=== PATIENT | male | born 1960 | race Caucasian/White ===

== ENCOUNTER 2025-02-20 21:00 | Emergency (ER) | payer BC, SELFPAY ==
--- OUTSIDE RECORDS SUMMARY | 2025-02-20 21:02 | XMS_ITS | Clinical Summary ---
Author Organization [facility] Address [address] [place] [id number] Care Team Providers Care Editing Clerk Name Role Phone Oscar Tello MD Primary Care Provider [phone]- [phone] Allergies No known active allergies Medications multivitamin (MVI) tablet Take 1 Tablet by mouth once daily. Active docusate 100 mg capsuleIndicatio ns:Lower urinary tract symptoms due to benign prostatic hyperplasia Take 1 Capsule (100 mg) by mouth 2 times daily if needed for Constipation . 20 Capsule 10/20/2024 10:16 AM CDT 10/20/2024 Active Active Problems Problem Noted Date Diagnosed Date Benign neoplasm of left kidney 05/10/2023 High prostate specific antigen (PSA) 05/10/2023 Lower urinary tract symptoms due to benign prostatic hyperplasia 05/10/2023 Renal mass 09/02/2021 Sensorineural hearing loss, bilateral 08/19/2018 Erectile dysfunction 12/26/2016 Benign non-nodular prostatic hyperplasia with lower urinary tract symptoms 12/26/2016 Resolved Problems Problem Noted Date Diagnosed Date Resolved Date Chest pain 09/02/2021 10/13/2024 CRP elevated 09/02/2021 10/13/2024 Encounter for screening colonoscopy 10/13/2024 Family History Medical History Relation Name Comments Cancer-prostate Father Dementia Father Cancer-breast Mother Dementia Mother Heart attack No Family History Relation Name Status Comments Father Mother Alive Social History Tobacco Use Types Packs/Day Years Used Date Smoking Tobacco: Never Smokeless Tobacco: Never Tobacco Cessation:Counseling Given: Yes Alcohol Use Standard Drinks/Week Comments Not Currently 0 (1 standard drink = 0.6 oz pur e alcohol) PHQ-2 Answer Date Recorded PHQ-2 TOTAL SCORE 0 10/13/2024 Social Connections Answer Date Recorded Do you often feel lonely or isolated from those around you? 0 06/28/2024 Financial Resource Strain Answer Date R ecorded Difficulty of Paying Living Expenses 3 06/28/2024 Difficulty of Paying Living Expenses Not on file 06/28/2024 Food Insecurity Answer Date Recorded Do you worry your food will run out before you are able to buy more? 1 06/28/2024 Transportation Needs Answer Date Record ed Does lack of transportation keep you from medica l appointments? 1 06/28/2024 Does lack of transportation keep you from work, meetings or getting things that you need? 1 06/28/2024 Housing Stability Answer Date Recorded What is your housing situation today? 1 06/28/2024 Interpersonal Safety Answer Date Record ed Are you being hit, kicked, p ushed or yelled at (see row info)? No 10/19/2024 Interpersonal Safety Abuse 12 - 18 Not on file 10/19/2024 Interpersonal Safety Ambulatory Vulnerability No t on file 10/19/2024 Utilities Answer Date Recorded Do you have trouble paying f or utilities (for example, heat, electricity, water, phone)? 1 06/28/2024 Sex and Gender Information Value Date Recorded Sex Assigned at Not on file Legal Sex Male 5:26 AM [employer]NAGER HOME [employer] Gender Identity Not on file Sexual Orientation Not on file Obstetrics History Last Filed Vital Signs Vital Sign Reading Time Taken Comments Blood Pressure 133/69 10/20/2024 7:48 AM CDT Pulse 84 10/20/2024 7:48 AM CDT Temperature 37 C (98.6 F) 10/20/2024 7:48 AM CDT Respiratory Rate 20 10/20/2024 7:48 AM CDT Oxygen Saturation 95% 10/20/2024 7:48 AM CDT Inhaled Oxygen Concentration - - Weight 79.8 kg (176 lb) 10/19/2024 6:37 AM CDT Height 180.3 cm (5' 11) 10/19/2024 6:37 AM CDT Body Mass Index 24.55 10/19/2024 6:37 AM CDT Plan of Treatment Health Maintenance Due Date Last Done Comments Pneumococcal series for age 50+ (1 of 1 - PCV) 2010 Zoster (shingles) series for age 50+ (1 of 2) 2010 RSV vaccine for adults or (1 - Risk 60-74 years 1-dose series) 2020 Tetanus booster 01/30/2021 01/30/2011 (Declined) COVID-19 vaccine series (1 - season) 2024 Influenza Vaccine (#1) 2025 BMI (ht and wt on same day) for age 18+ 06/29/2025 06/29/2024, 06/04/2022, 05/14/2022, Additional history exists Depression screening for age 12+ 10/13/2025 10/13/2024, 07/10/2024, 06/02/2021, Additional history exists Lipids for age 45-75 06/29/2029 06/29/2024, 05/01/2021, 06/01/2020, Additional history exists Colonoscopy through age 75 07/02/2032 07/02/2022 Hepatitis C screening for age 18-79 Completed 05/01/2021 HIV for age 15-65 Completed 06/29/2024 Hepatitis B series for 19+ Aged Out N o longer eligible based on patient's age to complete this topic Procedures Procedure Name Priority Date/Time Associated Diagnosis Comments ANTI HIV 1/2 Routine 06/29/2024 11:15 AM [employer]GER [employer] Screening for HIV (human immunodeficiency virus) LIPID PANEL Routine 06/29/2024 11:15 AM MANAGER HOME [employer] Screening, lipid COLONOSCOPY 07/02/2022 11:42 AM MANAGER HOME [employer]EMENT ANTI HCV Add On 05/01/2021 8:00 AM CDT Need for hepatitis C screening test from Last 3 Months or Most Recently Relevant to Health Maintenance Results * ANTI HIV 1/2 [95186.0] (06/29/2024 11:15 AM MANAGER HOME [employer]) HIV AG/AB, 4TH GEN NON-REACT MICAHEL NON-REACT MICHAEL [facility] Comment: HIV-1 antigen and HIV-1/HIV-2 antibodies were not detected. There is no laboratory evidence of HIV infection. PLEASE NOTE: This information has been disclosed to you from records whose confidentiality may be protected by state law. If your state requires such protection, then the state law prohibits you from making any further disclosure of the information without the specific written consent of the person to whom it pertains, or as otherwise permitted by law. A general authorization for the release of medical or other information is NOT sufficient for this purpose. For additional information please refer to http://education.Re[employer]/faq/IGU581 (This link is being provided for informational/ educational purposes only.) The performance of this assay has not been clinically validated in patients less than 2 years old. Blood BLOOD SPECIMEN / Unknown 06/29/2024 11:15 AM [employer]NAGER HOME [employer]EMENT 06/29/2024 11:16 AM MANAGER HOME [employer]OVEMENT Oscar Tello MD SEND OUTS Final Resu lt [facility] [address] [place] [address], [facility] [address] * (ABNORMAL) LIPID PANEL (06/29/2024 11:15 AM MANAGER HOME [employer]OVEMENT) CHOLESTEROL, TOTAL 218(H) <200 mg/dL [facility] HDL CHOLESTEROL 73 > OR = 40 mg/dL [facility] TRIGLYCERIDES 92 <150 mg/dL [facility] LDL-CHOLESTEROL 125(H) mg/dL (calc) [facility] Comment: Reference range: <100 Desirable range <100 mg/dL for primary prevention; <70 mg/dL for patients with CHD or diabetic patients with > or = 2 CHD risk factors. LDL-C is now calculated using the Gabriel calculation, which is a validated novel method providing better accuracy than the Friedewald equation in the estimation of LDL-C. Storm EWING et al. ANTONIO. 2013;310(19): 0415-7949 (http://education.ClickShift.Andela/faq/CQT656) CHOL/HDLC RATIO 3.0 <5.0 (calc) [facility] NON HDL CHOLESTEROL 145(H) <130 mg/dL (calc) [facility] Comment: For patients with diabetes plus 1 major ASCVD risk factor, treating to a non-HDL-C goal of <100 mg/dL (LDL-C of <70 mg/dL) is considered a therapeutic option. Blood BLOOD SPECIMEN / Unknown 06/29/2024 11:15 AM MANAGER HOME [employer]OVEMENT 06/29/2024 11:16 AM MANAGER HOME [employer]OVEMENT us Oscar Tello MD CHEMISTRY Final Resu lt [employer] [facility] [address] [place] [address], [facility] [address] [place] [address] * COLONOSCOPY (07/02/2022 11:42 AM MANAGER HOME [employer]OVEMENT) 07/02/2022 11:4 2 AM MANAGER HOME [employer]OVEMENT Narrative Transcriptions Diogo Velazquez DO - 07/02/2022 12:26 PM CST Patient Name: Sundeep Garcia Procedure Date: 07/02/2022 Gender: Male Date of : 1960 Admit Type: Ambulatory Procedure: Colonoscopy Proceduralist: Diogo Velazquez MD [facility] Indications/Pre-Op Diagnosis: Screening for colorectal malignant neoplasm, This is the patient's first colonoscopy Medications: Propofol per Anesthesia Procedure Description: The patient had risks, benefits and alternatives explained to andgave informed consent. The patient had a stable cardiopulmonary status and judged an adequate candidate for conscious sedation. The endoscope [id number] was passed through the anus and advanced to the cecum, identified by appendiceal orifice and ileocecal valve. The colonoscopy was performed without difficulty. The patient toleratedthe procedure well. The quality of the bowel preparation was good. The ileocecal valve, appendiceal orifice, and rectum were photographed. Complications: No immediate complications. Estimated Blood Loss & Specimen: Estimated blood loss: none. Specimen collected - None Findings: Non-bleeding internal hemorrhoids were found during retroflexion. The hemorrhoids were Grade II (internal hemorrhoids that prolapse butreduce spontaneously). The exam was otherwise without abnormality. Impressions/Post-Op Diagnosis: - Non-bleeding internal hemorrhoids. - The examination was otherwise normal. - No specimens collected. Recommendation: - Discharge patient to home. - Patient has a contact number available for emergencies. The signsand symptoms of potential delayed complications were discussed with the patient. Return to normal activities tomorrow. Written discharge instructions were provided to the patient. - High fiber diet. - Continue present medications. - Repeat colonoscopy in 10 years for screening purposes. Moderate Sedation: Moderate (conscious) sedation was personally administered by an anesthesia professional. The following parameters were monitored:oxygen saturation, heart rate, blood pressure, and response to care. Diogo Velazquez MD 07/02/2022 12:26:09 PM This report has been signed electronically. Note Initiated On: 07/02/2022 11:42 AM us Diogo Velazquez DO PROCEDURE ORD Fi nal Result * ANTI HCV (05/01/2021 8:00 AM CDT) HEPATITIS C ANTIBODY Non-React michael Non-React michael 05/01/2021 3:18 PM CDT [facility] Comment:Antibodies to HCV no t detected; does not exclude the possibility of exposure to HCV. Blood BLOOD SPECIMEN / Unknown Venipuncture / Unknown 05/01/2021 8:00 AM CDT 05/01/2021 8:00 AM CDT us Oscar Tello MD SEND OUTS Final Resu lt [facility] [address] [place] [address], [place] from Last 3 Months or Most Recently Relevant to Health Maintenance Insurance [facility] Advance Directives * Full Code (Latest Code Status on File) Date Activated Date Inactivated Comments 10/19/2024 6:06 AM 10/20/2024 2:36 PM Question Answer Comments Code Status Discussion: Not Discussed * Full Code Date Activated Date Inactivated Comments 09/04/2023 10:22 AM 09/04/2023 6:05 PM Question Answer Comments Code Status Discussion: Unable to Assess Preferences, Provider to review later * Full Code Date Activated Date Inactivated Comments 07/02/2022 10:45 AM 07/02/2022 3:27 PM Question Answer Comments Code Status Discussion: Discussed * Full Code Date Activated Date Inactivated Comments 05/29/2022 10:11 AM 05/30/2022 9:56 PM Question Answer Comments Code Status Discussion: Unable to Assess Preferences, Provider to review later * Full Code Date Activated Date Inactivated Comments 09/02/2021 3:00 PM 09/03/2021 6:58 PM Question Answer Comments Code Status Discussion: Reviewed Preferences Care Teams Editing Clerk Relationship Specialty Start Date End Date Oscar Tello MD [address] [place] [address] PCP - General Family Practice 07/17/21
--- OUTSIDE RECORDS SUMMARY | 2025-02-20 21:03 | XMS_ITS | Continuity of Care Document ---
Author Organization [facility], [facility] Address [address] [place] [address] Care Team Providers Care Rn Labor Delivery Name Role Phone [facility] Primary Care Provider Assessment No assessment recorded. Plan of Treatment Reminders Order Date Submit Date Provider Last Modified By Organization Details Last Modified Time Details Appointments None record ed. Lab None record ed. Referral None record ed. Procedures None record ed. Surgeries None record ed. Imaging None record ed. Medication Orders None record ed. Patient TargetsNo targets recorded. Patient Instructions Encounter Date Encounter Id Patient Instructions Last Modified By Organization Details Last Modified Time 01/26/2025 [id number] Timothy's recovery from Aqua is on track for a nice response, and I do expect his spraying to improve. He'll obtain his MRI kidney later this year, and we'll assess for growth change in the right kidney mass. His prostate has been adequately sampled over the past 15 months, we'll check a PSA next year. Not available 01/26/2025 10:57:40 Reason for Referral None Reported. Problems Name Problem SNOMED Code Status Onset Date Resolution Date Notes Provider Name and Address Organization Details Recorded Time Benign neoplasm of left kidney 3037448533462 04 Active 2022 Tejas shelton MD [address] [place] [address],[address], [phone], [facility] 3 16:19:34 Neoplasm of uncertain behavior of right kidney 5429166708907 01 Active 2022 Tejas shelton MD [address] [place] [address],[address] [place] [address], [phone], [facility] 5 10:55:01 Lower urinary tract symptoms due to benign prostatic hypertrophy 6672661816759 1 Active 2022 Tejas shelton MD [address] [place] [address],[address], [place], [address], [facility] 3 16:19:45 Prostate specific antigen above reference range 632872681 Active 2022 Tejas shelton MD [address] [place] [address],[address], [place], [address], [facility] 5 10:57:54 Primary erectile dysfunction 276046520 Active 2023 Tejas shelton MD [address] [place] [address],[address], [place], [address], [facility] 4 16:17:08 Claustropho jayme 84031529 Active 2023 Tejas shelton MD [address] [place] [address],[address], [place], [address], [facility] 4 12:07:31 Urge incontinenc e of urine 09475498 Active 2024 Tejas shelton MD [address] [place] [address],[address], [place], [address], [facility] 5 10:25:54 Problem Notes None recorded. Procedures Surgical History Date Name Laterality Status Provider Name and Address Organization Details Recorded Time 01/27/20 25 COMPLEX VISIT completed Tejas Almaraz MD [address] [place] [address],[address], [place], [address], [facility] 01/26/2025 10:58:02 01/27/20 25 Bladder Scan completed Letty Chavez [facility] 01/26/2025 09:26:40 11/18/19 25 Bladder Scan completed Lidia Parmar [facility] 11/17/2024 09:46:55 07/16/20 24 Bladder Scan completed Neal Palm [facility] 07/16/2024 17:09:47 07/16/20 24 [place] [facility] completed Neal Palm [facility] 07/16/2024 17:10:54 07/09/20 24 CystoscopyMale completed Tejas Almaraz MD [address] [place] [address],[address], [place], [address], [facility] 07/09/2024 10:13:21 05/07/20 24 COMPLEX VISIT completed Tejas Almaraz MD [address] [place] [address],[address], [place], [address], [facility] 05/07/2024 17:11:06 09/20/19 24 COMPLEX VISIT completed Tejas Almaraz MD [address] [place] [address],[address], [place], [address], [facility] 09/20/2023 16:20:42 07/03/20 23 Rocephin/Ceftriax one completed Carol Hsu [facility] 07/03/2023 08:23:17 05/10/20 23 Blood Draw/BENCH PRESS OPERATOR/PSA RESULTS completed Tanya Willard [facility] 05/10/2023 16:14:08 05/04/20 22 Bladder Scan completed Lucía Ha [facility] 05/04/2022 12:59:59 07/29/19 22 Colonoscopy completed Carolee Perkins [facility] 05/07/2024 15:19:15 01/21/20 21 Fill and Pull/Voiding Trial/TOV completed Zoila Simpson [facility] 01/20/2021 14:49:20 01/17/20 21 Rezum completed David Castaneda MD [address] [place] [address],[address], [place], [address], [facility] 01/16/2021 15:30:48 Imaging Results None recorded. Procedure Notes None recorded. Medical Equipment None Reported. Allergies No known drug allergies Medications Name Sig Start Date Stop Date Status Note LastModified by Organization Details LastModified Time oxybutynin chloride ER 10 mg tablet,exte nded release 24 hr TAKE 1 TABLET BY MOUTH EVERY DAY 01/26 completed Not Available Not Available Not Available ibuprofen 800 mg tablet 05/04 completed Not Available Not Available Not Available penicillin V potassium 500 mg tablet 05/07 completed Not Available Not Available Not Available sulfamethox azole 800 mg-trimetho prim 160 mg tablet Take 1 tablet every 12 hours by oral route for 5 days. 05/04 completed Not Available Not Available Not Available ceftriaxone 1 gram solution for injection Take 1 g by injection route. 05/07 completed Not Available Not Available Not Available Fleet Enema 19 gram-7 gram/118 mL Insert by rectal route the morning of the Biopsy. 05/07 completed Not Available Not Available Not Available tamsulosin 0.4 mg capsule TAKE 1 CAPSULE BY MOUTH EVERY DAY 07/09 completed Not Available Not Available Not Available benzonatate 100 mg capsule TAKE 1 CAPSULE (100 MG) BY MOUTH 3 TIMES DAILY IF NEEDED FOR COUGH. 09/14 completed Not Available Not Available Not Available lorazepam 1 mg tablet TAKE 1 TABLET BY MOUTH 30 MINUTES BEFORE TEST. MAY REPEAT ONCE 05/04 completed Not Available Not Available Not Available diazepam 10 mg tablet TAKE 1 TABLET AN HOUR PRIOR TO YOUR MRI. DO NOT DRIVE YOURSELF TO THIS MRI IF YOU DO. 05/07 completed Not Available Not Available Not Available ibuprofen 600 mg tablet TAKE 1 TABLET (600 MG) BY MOUTH EVERY 6 HOURS IF NEEDED FOR PAIN. MAXIMUM OF 3200 MG IN 24 HOURS. 05/04 completed Not Available Not Available Not Available levofloxaci n 500 mg tablet TAKE 1 TABLET DAILY FOR 3 DAYS, STARTING THE DAY BEFORE THE PROCEDURE 05/07 completed Not Available Not Available Not Available albuterol sulfate HFA 90 mcg/actuati on aerosol inhaler INHALE 2 PUFFS BY MOUTH 4 TIMES DAILY IF NEEDED FOR SHORTNESS OF BREATH FOR UP TO 7 DAYS. 09/14 completed Not Available Not Available Not Available doxycycline hyclate 100 mg tablet TAKE 1 TABLET BY MOUTH TWICE A DAY FOR 10 DAYS 09/14 completed Not Available Not Available Not Available amoxicillin 875 mg-potassiu m clavulanate 125 mg tablet TAKE 1 TABLET BY MOUTH 2 TIMES DAILY WITH MEALS FOR 5 DAYS. 05/04 completed Not Available Not Available Not Available oxycodone 5 mg tablet TAKE 1-2 TABLETS (5-10 MG) BY MOUTH EVERY 4 HOURS IF NEEDED FOR PAIN. 09/14 completed Not Available Not Available Not Available tadalafil 20 mg tablet TAKE 1 TABLET BY MOUTH ONCE DAILY 07/09 completed Not Available Not Available Not Available GaviLyte-G 236 gram-22.74 gram-6.74 gram-5.86 gram oral solution TAKE 4,000 ML BY MOUTH ONE TIME FOR 1 DOSE. FOR COLONOSCO PY ON 07/02/202209/14 completed Not Available Not Available Not Available Senexon-S 8.6 mg-50 mg tablet TAKE 1 TABLET BY MOUTH TWICE A DAY 05/04 completed Not Available Not Available Not Available Vitals Date Recorded Body height Body mass index (BMI) Body weight Provider Name and Address Organization Details Last Updated DateTime 01/26/2025 180.34 cm 24.4 kg/m2 53489.66 g Letty Chavez [facility] 01/26/2025 09:25:13 Social History Question Answer Notes LastModified by Organizat ion Details LastModified Time Tobacco Smoking Status Never Smoker Ev pacheco [facility] 01/16/2021 14:33:15 Do You Have An Advance Directive? No Information not available 01/26/2025 What Is Your Level Of Caffeine Consumption? Occasional [email or web address] Information not available 11/17/2024 How Much Tobacco Do You Chew? None Information not available 01/16/2021 Race White Information no t available 01/16/2021 Ethnicity Not / Information not available 01/16/2021 Preferred Language Kazakh Information not available 01/16/2021 Could You Be ? No Information not available 01/16/2021 Marital Status Informatio n not available 01/16/2021 Do You Have A Medical Power Of Vegetable Farm Worker? No Information not available 01/26/2025 What Was The Date Of Your Most Recent Tobacco Screening? 01/26/2025 Information not available 01/26/2025 Has Tobacco Cessation Counseling Been Provided? No Information not available 01/26/2025 Sex: Male Functional Status Question Answer Note LastModified by Organizat ion Details LastModified Time Do you use any illicit or recreational drugs? No Information not available 01/26/2025 Do you or have you ever used any other forms of tobacco or nicotine? No Information not available 01/26/2025 What is your level of alcohol consumption? None [email or web address] Information not available 11/17/2024 Do you or have you ever used smokeless tobacco? Never used smokeless tobacco Information not available 01/16/2021 Do you or have you ever used e-cigarettes or vape? Never used electronic cigarettes Information not available 01/16/2021 Mental Status None recorded. Family History Relationship Description Onset Age of this Age Resolved Age Notes LastModified by Organization Details LastModified Time Father Family history of malignant neoplasm of prostate Not available 01/16 14:35:52 Medical History Condition Response Other N High Blood Pressure N Kidney Stones N Depression N Lung Disease N GERD/Acid Reflux Y Diabetes N Sexually Transmitted Infection N Bleeding Disorder N Cancer N High Cholesterol Y Heart Disease N Past Encounters Encounter ID Performer Location Encounter Start Date Encounter Closed Date Diagnosis/Indication Diagnosis SNOMED-CT Code Diagnosis ICD10 Code Diagnosis Note [id number] Tejas Almaraz MD [facility] [address] [place] [address] 01/26/2025 09:07:16 02/10/2025 09:14:15 Lower urinary tract symptoms due to benign prostatic hypertrophy 6330167902 9101 N40.1 Neoplasm o f uncertain behavior of right kidney 4386945796 31864 D41.01 Prostate s pecific antigen above reference range 373470659 R97.20 Health Concerns Section Related Observation LastModified by Organization Detai ls LastModified Time None Recorded Concern Status LastModified by Organization Details LastModified Time None Recorded Payers Encounter Date Sequence Insurance Name Policy Number Policy Nix Covered Member ID Nix Member ID Guarantor Name 01/26/2025 1 [place] [id number] [id number] Sundeep Garcia Notes Date Note Type Note Provider Name and Address Organization Details Recorded Time 01/26/2025 text/html 64M presents for BPH/LUTS follow up, now s/p Aquablation Sep 2024. Path benign. Better flow, complete emptying without hesitancy, and has had a continued nice recovery, now happy. Only residual complaint is some stream spraying, QOL strong. No dysuria, GH, pain.I also see him for renal masses.He is s/p Rezum in 2020, and had LUTS improvement x 2 years, noticing some of that effect waning. This has worsened over summer. We started Flomax - cannot tolerate due to severe side effects.PSA was over 4 prior to Rezum, and 3.49 after treatment, and had an MRI prostate at [facility] prior to treatment. MRI was benign. PSA recently updated: 6.8. Father had prostate cancer that required multimodal therapy. Biopsy Aug 2023: 12 cores benign.He is s/p left partial nephrectomy on 05/29/2022. Path: oncocytoma, clean margins, 3 cm. We are aware of and observing a 2.2cm solid right renal neoplasm.CT Mar 2023 showed well appearing partial nephrectomy site, and a stable, still unchanged 2.2 cm right renal mass (possibly hyperdense cyst). MRIs note the mass to be slightly smaller, with Mar 2024 showing stability, at 2.0 cm. It was 1.4 cm on MRI in Jul 2020. We discussed the new sub 5 mm pancreatic cyst (?), too small to characterize, we'll follow. Tejas Almaraz MD [address] [facility], [place], [address], [facility] 01/26/2025 10:58:14
--- OUTSIDE RECORDS SUMMARY | 2025-02-20 21:03 | XMS_ITS | Data Portability ---
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 Plan of Treatment Reminders Order Date Submit Date Provider Last Modified By Organization Details Last Modified Time Details Appointments None recorded. Lab urinalysis, dipstick 2023 024 [email or web address] er2 [place], [address], [address], [place], [address], 4 10:14:47 Referral None recorded. Procedures electromyog tyra studies (EMG) of anal or urethral sphincter, other than needle (PROC) 2023 024 [email or web address] Not available 4 12:06:49 complex cystometrog kyung with voiding pressure studies (PROC) 2023 024 [email or web address] Not available 4 12:06:49 complex uroflowmetr y (PROC) 2023 024 [email or web address] Not available 4 12:06:49 Surgeries transurethr al resection of prostate (SURG) 2023 025 [email or web address] Not available 4 13:12:12 Imaging MRI, kidney, w/wo contrast - Please call pt to schedule 2023 025 [email or web address] 89 [facility], [address], [place], [address], 4 12:34:46 Medication Orders oxybutynin chloride ER 10 mg tablet,exte nded release 24 hr 2024 025 KSENIA DEVINE [id number] [facility], [address], [place], [address], 5 09:25:52 tamsulosin 0.4 mg capsule 2023 024 KSENIA DEVINE [id number] [facility], [address], [place], [address], 09:31:25 Patient TargetsNo targets recorded. Patient Instructions Encounter Date Encounter Id Patient Instructions Last Modified By Organization Details Last Modified Time 05/07/2024 [id number] Timothy and Jerrod revie wed the stable right renal mass, 2cm, and we're watching it with serial imaging. We'll repeat MRI in 1 year, and may consider renal US Dec/Jan 2025. We'll begin Flomax for BPH (recurrent) after a discussion about options, he may need study with cysto and consideration for another Rezum or procedure. Gland was noted at 53 grams. With me in 3 months. Not available 05/07/2024 17:13:27 07/09/2024 [id number] I had a long discussion with the patient regarding his symptom severity and his findings from both his imaging and cystoscopy. We first discussed continued medical therapy with alpha-blockade with or without the addition of finasteride 5 mg daily. We discussed expectations in terms of symptom improvement with combination medical therapy as outlined by the MTOPS trial. We then discussed minimally invasive procedures done under anesthesia in the office, notably the Rezum, and Urolift procedures. He failed Rezum before - we are not considering it. We discussed surgical outlet procedures done under anesthesia including bi-polar transurethral resection of prostate, transurethral laser vaporization of prostate and Aquablation, which involves high-pressure saline hydrodissection as its core technology for prostate removal. We discussed the technical aspects of these three procedures and that ultimately the goal is the same. We then discussed the associated risks including bleeding requiring transfusion, urinary tract infection, injury to the bladder/ureteral orifices/urinary sphincter, urethral stricture formation, anesthetic risks, postoperative urinary retention, and expected durability of treatment with anticipated retreatment rate. We discussed that Aquablation may reduce any worsening in sexual dysfunction post-operatively, but this data is not yet mature. He would like to proceed with Aquablation - he is a good candidate. We'll finish his work up with Urocuff. Not available 07/09/2024 10:16:22 11/17/2024 [id number] We reviewed his urge/UUI is likely temporary and related to his healing process, which is otherwise going well - thus reassurance given. He maintains an active daily routine and we reviewed meds can ameliorate these effects while he is healing, and also have side effects. He wishes to proceed with oxy ER for now - we'll reassess in two months. Not available 11/17/2024 10:26:57 01/26/2025 [id number] Timothy's recovery from Aqua is on track [...] 01/26/2025 10:57:40 Reason for Referral None Reported. Results Created Date Observation Date Name Description Value Unit Range Abnormal Flag Note LastModifiedBy Organization Detail LastModifiedTime 07/09/2007/09/2024 urina lysis , dipst ick Color-Status Yellow Not Available [facility] [address], [place], [address], 07/09/2024 09:24:29 07/09/20 24 07/09/2024 urina lysis , dipst ick Clarity-Stat us Clear Not Available [facility] [address], [place], [address], 07/09/2024 09:24:29 07/09/20 24 07/09/2024 urina lysis , dipst ick pH-Status 6.0 Not Available [address], [place], [address], 07/09/2024 09:24:29 07/09/20 24 07/09/2024 urina lysis , dipst ick Nitrates-Sta tus negati ve Not Available [address], [place], [address], 07/09/2024 09:24:29 07/09/20 24 07/09/2024 urina lysis , dipst ick Blood-Status Negati ve Not Available [facility], [place], [address], 07/09/2024 09:24:29 07/09/20 24 07/09/2024 urina lysis , dipst ick Leuko-Status Negati ve Not Available [facility], [place], [address], 07/09/2024 09:24:29 07/09/20 24 07/09/2024 urina lysis , dipst ick Specimen Type Voided Not Available [facility], [place], [address], 07/09/2024 09:24:29 07/09/20 24 07/09/2024 urina lysis , dipst ick Performed by vd Not Available [facility], [place], [address], 07/09/2024 09:24:29 04/16/20 24 04/15/2024 MRI, lela y, w/wo contr ast No observ ation record ed. [facility] [address] [place], [address], 04/17/2024 13:28:36 Result Notes None recorded. Problems Name Problem SNOMED Code Status Onset Date Resolution Date Notes Provider Name and Address Organization Details Recorded Time Benign neoplasm of left kidney 7362723039776 04 Active 2022 Tejas shelton MD [address] [place] [address],[address], [place], [address], [facility] 3 16:19:34 Neoplasm of uncertain behavior of right kidney 3801766571174 01 Active 2022 Tejas shelton MD [address] [place] [address],[address], [place], [address], [facility] 5 10:55:01 Lower urinary tract symptoms due to benign prostatic hypertrophy 6518887545383 1 Active 2022 Tejas shelton MD [address] [place] [address],[address], [place], [address], [facility] 3 16:19:45 Prostate specific antigen above reference range 867492782 Active 2022 Tejas shelton MD [address] [place] [address],[address], [place], [address], [facility] 5 10:57:54 Primary erectile dysfunction 939740709 Active 2023 Tejas shelton MD [address] [place] [address],[address], [place], [address], [facility] 4 16:17:08 Claustropho jayme 59340123 Active 2023 Tejas shelton MD [address] [place] [address],[address], [place], [address], [facility] 4 12:07:31 Urge incontinenc e of urine 71284553 Active 2024 Tejas shelton MD [address] [place] [address],[address], [place], [address], [facility] 5 10:25:54 Problem Notes None recorded. Procedures Surgical History Date Name Laterality Status Provider Name and Address Organization Details Recorded Time 01/27/20 25 COMPLEX VISIT completed Tejas Almaraz MD [address] [place] [address],[address], [place], [address], [facility] 01/26/2025 10:58:02 01/27/20 25 Bladder Scan completed Letty Chavez [facility] 01/26/2025 09:26:40 11/18/19 25 Bladder Scan completed Lidia Parmar [facility] 11/17/2024 09:46:55 07/16/20 24 Bladder Scan completed [facility] 07/16/2024 17:09:47 07/16/20 24 [place] - UroCuff completed Neal Palm [facility] 07/16/2024 17:10:54 07/09/20 24 CystoscopyMale completed Tejas Almaraz MD [address] [place] [address],[address], [place], [address], [facility] 07/09/2024 10:13:21 05/07/20 24 COMPLEX VISIT completed Tejas Almaraz MD [address] [place] [address],[address], [place], [address], [facility] 05/07/2024 17:11:06 09/20/19 24 COMPLEX VISIT completed Tejas Almaraz MD [address] [place] [address],[address], [place], [address], [facility] 09/20/2023 16:20:42 07/03/20 23 Rocephin/Ceftriax one completed Carol Hsu [facility] 07/03/2023 08:23:17 05/10/20 23 Blood Draw/MAGNETIC RESONANCE IMAGING COORDINATOR/PSA RESULTS completed Tanya Willard [facility] 05/10/2023 16:14:08 05/04/20 22 Bladder Scan completed Lucía Ha [facility] 05/04/2022 12:59:59 07/29/19 22 Colonoscopy completed [facility] 05/07/2024 15:19:15 01/21/20 21 Fill and Pull/Voiding Trial/TOV completed Zoila Simpson [facility] 01/20/2021 14:49:20 01/17/20 21 Rezum completed David Castaneda MD [address] [facility],[address], [place], [address], [facility] 01/16/2021 15:30:48 Imaging Results None recorded. [...] DAYS, STARTING THE DAY BEFORE THE PROCEDURE 10/10 /2024 completed Not Available Not Available Not Available [...] and Address Organization Details Last Updated DateTime 11/17/2024 180.34 cm 24.4 kg/m2 48160.66 g Lidia Parmar [facility] 11/17/2024 09:46:05 Date Recorded Body height Body mass index (BMI) Body weight Provider Name and Address Organization Details Last Updated DateTime 01/26/2025 180.34 cm 24.4 kg/m2 37860.66 g Letty Chavez [facility] 01/26/2025 09:25:13 Date Recorded Body height Body mass index (BMI) Body weight Provider Name and Address Organization Details Last Updated DateTime 05/07/2024 180.34 cm 24.4 kg/m2 15279.66 g Carolee Perkins [facility] 05/07/2024 15:18:39 Date Recorded Body height Body mass index (BMI) Body weight Provider Name and Address Organization Details Last Updated DateTime 07/09/2024 180.34 cm 25.1 kg/m2 14812.63 g Tanja Strauss [facility] 07/09/2024 09:31:06 Social History Question Answer Notes LastModified by [employer] Details LastModified Time Tobacco Smoking Status Never Smoker Ev Osbornamaris pacheco [facility] 01/16/2021 14:33:15 Do You Have An Advance Directive? No Information not available 01/26/2025 What Is Your Level Of Caffeine Consumption? Occasional Information not available 11/17/2024 How Much Tobacco Do You Chew? None Information not available 01/16/2021 Race White Information no t available 01/16/2021 Ethnicity Not / Information not available 01/16/2021 Preferred Language Kazakh Information not available 01/16/2021 Could You Be ? No Information not available 01/16/2021 Marital Status Informatio n not available 01/16/2021 Do You Have A Medical Power Of Turntable Man? No Information not available 01/26/2025 What Was The Date Of Your Most Recent Tobacco Screening? 01/26/2025 Information not available 01/26/2025 Has Tobacco Cessation Counseling Been Provided? No Information not available 01/26/2025 Sex: Male Functional Status Question Answer Note LastModified by [employer] Details LastModified Time Do you use any illicit or recreational drugs? No Information not available 01/26/2025 Do you or have you ever used any other forms of tobacco or nicotine? No Information not available 01/26/2025 What is your level of alcohol consumption? None [email or web address] Information not available 11/17/2024 Do you or [...] Pressure N Kidney Stones N Depression N Sexually Transmitted Infection N Cancer N Bleeding Disorder N Lung Disease N GERD/Acid Reflux Y High Cholesterol Y Diabetes N Heart Disease N Past Encounters Encounter ID Performer Location Encounter Start Date Encounter Closed Date Diagnosis/Indication Diagnosis SNOMED-CT Code Diagnosis ICD10 Code Diagnosis Note [id number] MD TIRSO Diaz[facility] [address] [place] [address] 01/16/2021 14:18:41 01/18/2021 09:31:22 Lower urinary tract symptoms due to benign prostatic hypertrophy 5039916319 9101 N40.1 - Now s/p Rezum, post-op handout provided.- Will return in 4 days for void trial. - Follow up with me in 6-8 weeks for symptom check [id number] MD Hayden Diaz [address] [place] [address] 01/20/2021 14:37:07 01/23/2021 12:28:03 Lower urinary tract symptoms due to benign prostatic hypertrophy 0471983826 9101 N40.1 Pt will follow up with Dr Castaneda [id number] MD TIRSO Yun_Sar[facility] [place] [place] [address] 05/04/2022 12:29:14 05/07/2022 08:51:08 Renal mass 929693152 N28.89 Neoplasm o f uncertain behavior of left kidney 4754294415 83901 D41.02 [id number] MD TIRSO [facility] [place] [place] [address] 06/15/2022 15:54:06 06/20/2022 09:26:56 Benign neoplasm of left kidney 0614329450 55805 D30.02 [id number] MD TIRSO [facility] [place] [place] [address] 09/14/2022 15:45:03 09/19/2022 12:42:44 Benign neoplasm of left kidney 3471117058 72415 D30.02 Neoplasm o f uncertain behavior of right kidney 2170671060 03150 D41.01 [id number] MD TIRSO YunSarita [address] [place] [address] 05/10/2023 15:39:49 05/15/2023 14:36:26 Benign neoplasm of left kidney 8120418951 69563 D30.02 Neoplasm o f uncertain behavior of right kidney 4090157105 07231 D41.01 Lower urin erica tract symptoms due to benign prostatic hypertrophy 0081454494 9101 N40.1 Prostate s pecific antigen above reference range 056357174 R97.20 [id number] [place] [address] [place] [address] [address] 06/06/2023 15:25:00 06/12/2023 08:30:42 Prostate specific antigen above reference range 644565339 R97.20 Neoplasm o f uncertain behavior of right kidney 8176089774 D41.01 [id number] MD [place] [address] [facility] [address] [address] 07/03/2023 08:46:33 07/15/2023 12:29:41 Prostate specific antigen above reference range 077077063 R97.20 [id number] MD TIRSO YunSarita [address] [place] [address] 09/20/2023 15:37:08 09/23/2023 14:30:39 Primary erectile dysfunction 996126096 N52.9 Lower urin erica tract symptoms due to benign prostatic hypertrophy 7411464411 9101 N40.1 Prostate s pecific antigen above reference range 648275716 R97.20 Neoplasm o f uncertain behavior of right kidney 5354254990 D41.01 [id number] MD [facility] [address] [facility] [address] [address] 05/07/2024 14:56:55 05/08/2024 12:34:46 Prostate specific antigen above reference range 345172849 R97.20 Primary er ectile dysfunction 336999457 N52.9 Lower urin erica tract symptoms due to benign prostatic hypertrophy 6212179075 9101 N40.1 Neoplasm o f uncertain behavior of right kidney 2567471682 D41.01 [id number] Tejas Almaraz MD [facility] [address] [place] [address] 07/09/2024 09:20:33 07/15/2024 16:39:24 Lower urinary tract symptoms due to benign prostatic hypertrophy 5370597111 9101 N40.1 [id number] Tjeas Almaraz MD [facility] [address] [place] [address] 07/16/2024 16:45:58 07/23/2024 08:58:53 Lower urinary tract symptoms due to benign prostatic hypertrophy 9425375111 9101 N40.1 [id number] Tejas Almaraz MD [facility] [address] [place] [address] 11/17/2024 09:35:20 11/23/2024 11:33:29 Lower urinary tract symptoms due to benign prostatic hypertrophy 8882558713 9101 N40.1 Urge incon tinence of urine 65153469 N39.41 [id number] Tejas Almaraz MD [facility] [address] [place] [address] 01/26/2025 09:07:16 02/10/2025 09:14:15 Lower urinary tract symptoms due to benign prostatic hypertrophy 8251261624 9101 N40.1 Neoplasm o f uncertain behavior of right kidney 9728447595 D41.01 Prostate s pecific antigen above reference range 365232246 R97.20 Health Concerns Section Related Observation LastModified by Organization Detai ls LastModified Time None Recorded Concern Status LastModified by Organization Details LastModified Time None Recorded Advance Directives Directive N: Payers Insurance Date Sequence Insurance Name Policy Number Policy Nix Covered Member ID Nix Member ID Guarantor Name 07/03/2023 PAYMENT PLAN Sundeep S Stai 11/17/2024 2 [employer]AK-[employer] (PPO) Sundeep Walker Stai [id number] CT Sundeep Walker Stai 02/10/2025 1 [place] [id number] Sundeep S Stai [id number] CT Sundeep S Stai 11/17/2024 2 [place]AC[place] - HMO) Sundeep S Stai [id number] CT Sundeep S Stai 11/17/2024 2 [place] [facility] (PPO) Sundeep S Stai [id number] CT Sundeep S Stai 06/28/2023 1 [place] [id number] Sundeep S Stai [id number] Sundeep S Stai 06/28/2023 1 [place] [id number] Sundeep S Stai [id number] Sundeep S Stai 11/16/2024 1 [place] [id number] Sundeep S Stai [id number] Sundeep S Stai 06/28/2023 1 [place] [id number] Sundeep S Stai [id number] 29 Sundeep S Stai 06/28/2023 ANTHEM BLUE CROSS BLUE SHIELD EAP [id number] Sundeep S Stai [id number] Sundeep S Stai 11/17/2024 1 [place] [id number] Sundeep S Stai [id number] Sundeep S Stai 06/28/2023 1 [place] [id number] Sundeep S Stai [id number] 29 Sundeep S Stai Notes Date Note Type Note Provider Name and Address Organization Details Recorded Time 05/07/2024 text/html 63M presents for renal mass, cyst, BPH/LUTS, PSA follow up. He is s/p left partial nephrectomy on 05/29/2022. Path: oncocytoma, clean margins, 3 cm. We are aware of and observing a 2.2cm solid right renal neoplasm. CT Mar 2023 showed well appearing partial nephrectomy site, and a stable, still unchanged 2.2 cm right renal mass (possibly hyperdense cyst). MRIs note the mass to be slightly smaller, with Mar 2024 showing stability, at 2.0 cm. It was 1.4 cm on MRI in Jul 2020. We discussed the new sub 5mm pancreatic cyst (?), too small to characterize, we'll follow.He is also s/p Rezum in 2020, and had LUTS improvement x 2 years, noticing some of that effect waning. This has worsened over the summer.PSA was over 4 prior to Rezum, and 3.49 after treatment, and had an MRI prostate at [place] prior to treatment. MRI was benign. PSA recently updated: 6.8. Father had prostate cancer that required multimodal therapy. Biopsy Aug 2023: 12 cores benign. Tejas Almaraz MD [address] [place] [address],[address], [place], [address], [facility] 05/07/2024 17:13:39 07/09/2024 text/html 63M presents for BPH/LUTS follow up, I also see him for renal masses. He is s/p Rezum in 2020, and had LUTS improvement x 2 years, noticing some of that effect waning. This has worsened over summer. We started Flomax - cannot tolerate due to severe side effects.PSA was over 4 prior to Rezum, and 3.49 after treatment, and had an MRI prostate at [place] prior to treatment. MRI was benign. PSA recently updated: 6.8. Father had prostate cancer that required multimodal therapy. Biopsy Aug 2023: 12 cores benign. He is s/p left partial nephrectomy on 05/29/2022. Path: oncocytoma, clean margins, 3 cm. We are aware of and observing a 2.2cm solid right renal neoplasm. CT Mar 2023 showed well appearing partial nephrectomy site, and a stable, still unchanged 2.2 cm right renal mass (possibly hyperdense cyst). MRIs note the mass to be slightly smaller, with Mar 2024 showing stability, at 2.0 cm. It was 1.4 cm on MRI in Jul 2020. We discussed the new sub 5mm pancreatic cyst (?), too small to characterize, we'll follow. Tejas Almaraz MD [address] [place] [address],[address], [place], [address], [facility] 07/09/2024 10:16:35 07/16/2024 text/html 63 YOM presents for urocuff. Performed by: TYLER De Jesus Not Available [facility] 07/16/2024 17:11:44 11/17/2024 text/html 64M presents for BPH/LUTS follow up, now s/p Aquablation Sep 2024. Path benign. Better flow, complete emptying without hesitancy, but still recovering from frequency, urgency and even two episodes of UUI. No dysuria, GH, pain. I also see him for renal masses.He is s/p Rezum in 2020, and had LUTS improvement x 2 years, noticing some of that effect waning. This has worsened over summer. We started Flomax - cannot tolerate due to severe side effects.PSA was over 4 prior to Rezum, and 3.49 after treatment, and had an MRI prostate at [place] prior to treatment. MRI was benign. PSA [...] Jul 2020. We discussed the new sub 5mm pancreatic cyst (?), too small to characterize, we'll follow. Tejas Almaraz MD [address] [place] [address],[address], [place], [address], [facility] 11/17/2024 10:27:08 01/26/2025 text/html 64M presents for BPH/LUTS follow [...] treatment, and had an MRI prostate at [place] prior to treatment. MRI was benign. PSA [...] to characterize, we'll follow. Tejas Almaraz MD [address] [place] [address],[address], [place], [address], [facility] 01/26/2025 10:58:14
[2025-02-20 21:06] VITALS: BP 138/90; PULSE 82; RESP 16; TEMP 36.6; O2SAT 96; BMI 24.4
--- NOTE | 2025-02-20 21:24 | ED_ITS ---
HPI - General Adult General Date Seen: 02/20/25 Chief complaint: Laceration/Wound Stated complaint: Right index finger laceration Time Seen by Provider: 02/20/25 21:02 History of Present Illness HPI narrative: Patient is a 64-year-old who was pulling weeds near some chain-link fence. He sustained a laceration to his index finger he believes on a sharp part of the metal though he is not entirely sure. It was bleeding quite a bit home and so he covered it with cayenne pepper. He is not up-to-date on immunizations and declines tetanus prophylaxis, he says he is not ?interested in any kind of vaccines. No numbness or loss of function. Related Data Home Medications ?Medication ?Instructions ?Recorded ?Confirmed No Known Home Medications 02/20/2501/27 Allergies Allergy/AdvReac Type Severity Reaction Status Date / Time No Known Drug Allergies Allergy Verified 02/20/25 21:04 [facility] Medical History (Updated 02/20/25 @ 21:24 by Serena Tinajero MD) Erectile dysfunction ?N52.9 - Male erectile dysfunction, unspecified (ICD-10) Sensorineural hearing loss ?H90.5 - Unspecified sensorineural hearing loss (ICD-10) Benign neoplasm of left kidney ?D30.02 - Benign neoplasm of left kidney (ICD-10) Surgical History (Updated 02/20/25 @ 21:06 by Paloma Justice RN) History of laparoscopic appendectomy ?Z90.49 - Acquired absence of other specified parts of digestive tract (ICD- 10) Social History Do you use any of these nicotine containing products: None Non-prescribed substance use: denies use Exam Narrative: Exam Narrative: Vital signs reviewed In general, alert, nontoxic male. Extremities: Examination of the right index finger shows approximately 1/2 cm laceration over the palmar aspect of the index finger between the D IP and PIP. He has intact flexion and extension of the the IP and PIP joints. Distal CMS is intact. Bleeding is controlled. Const: Vital Signs, click to edit/add: Vital Signs - 24 hr 02/20/25 21:06 Temperature 98 F Pulse Rate [Pulse Oximeter] 82 Respiratory Rate 16 Blood Pressure [Ri ght Upper Arm] 138/90 H Pulse Oximetry 96 Oxygen Delivery Me thod Room Air Course Course ED Course: Discussed options for repair, he does not like needles and would like to use glue. Procedure note: Wound was cleaned and explored, no evidence of injury to deeper structures, no visible foreign body. Repaired with Dermabond, which he tolerated well. Will give him of finger splint to use for couple of days just to help retain the glue little bit better. Discussed symptoms of infection, return if he notices any of these. Otherwise routine wound care. Again, tetanus refused. Vital Signs Vital signs: Initial Vital Signs Temperature 98 F 02/20/25 21:06 Temperature Source Temporal Artery Scan 02/20/25 21:06 Pulse Rate 82 02/20/25 21:06 Respiratory Rate 16 02/20/25 21:06 Blood Pressure 138/90 H 02/20/25 21:06 Blood Pressure Mean 106 H 02/20/25 21:06 Blood Pressure Position Sitting 02/20/25 21:06 Pulse Oximetry 96 02/20/25 21:06 Oxygen Delivery Method Room Air 02/20/25 21:06 Vital Signs Temperature 98 F 02/20/25 21:06 Pulse Rate 82 02/20/25 21:06 Respiratory Rate 16 02/20/25 21:06 Blood Pressure 138/90 H 02/20/25 21:06 Pulse Oximetry 96 02/20/25 21:06 Oxygen Delivery Method Room Air 02/20/25 21:06 Temperature 98 F 02/20/25 21:06 Pulse Rate 82 02/20/25 21:06 Respiratory Rate 16 02/20/25 21:06 Blood Pressure 138/90 H 02/20/25 21:06 Pulse Oximetry 96 02/20/25 21:06 Oxygen Delivery Method Room Air 02/20/25 21:06 Discharge Plan Discharge Clinical Impression: Finger laceration Patient Disposition: Home, Self-Care Condition: Improved Instructions: Finger Laceration (ED) Additional Instructions: Ideally will wear the splint most of the time over the next couple of days. This will just help the glue from loosening prematurely. Expect this wound will heal over the next 7-10 days, if the glue has not fallen off by then, it can be removed with acetone or antibiotic ointment as we discussed. Keep an eye out for signs of infection such as increasing redness, swelling, pain or unusual dr aishashi. You should be seen again for any of these symptoms. Prescriptions: No Action No Known Home Medications Stand Alone Forms: MyHealth Info Instructions
== END 2025-02-20 21:40 | disposition home or self-care (01) ==
LOC: ED 21:31
PROVIDERS: Emergency Provider Emergency Medicine
DX: S61.210A Laceration without foreign body of right index finger without damage to nail, initial encounter (principal); W26.8XXA Contact with other sharp object(s), not elsewhere classified, initial encounter; Y93.H2 Activity, gardening and landscaping
CPT/HCPCS: 12001; 99282; 99284